=== PATIENT | female | born 1935 | race African-American/Black ===

== ENCOUNTER 2018-01-30 02:05 | Inpatient (IN) | payer OTHER ==
[~2018-01-30] VITALS: Ht 167.6 cm; Wt 72.5 kg
--- NOTE | ~2018-01-30 | HC ---
[facility] [place] [address] CONSULTATION Name: OSIEL BALLESTEROS Room #: 463-P ADM IN M.R.#: [id number] Admission: 01/30/18 Attend Phys: Sofía Noel Discharge: Date of : 39 Report #: [id number] THIS REPORT FOR: //name// CC: FAM unknown Sofía Noel DATE OF SERVICE: 01/31/2018 HISTORY OF PRESENT ILLNESS: This is an 82-year-old female patient who was evaluated by me for dizziness. The patient gives a history that about 2-3 days ago, her speech got altered. She had some symptoms on the right side. She felt dizzy. This dizziness was moderately severe. She was still able to walk. She does have some balance issues. They all started about 2-3 days ago. This started spontaneously without any trauma. REVIEW OF SYSTEMS: Indicate that she usually goes to [facility] for her care. The last time she was there DICTATION ENDS HERE. <ELECTRONICALLY SIGNED> By: Parish Paz MD 01/31/18 1711 0831 1214 Parish Paz MD /nt
--- NOTE | ~2018-01-30 | EKG ---
[address] [employer] [address] ELECTROCARDIOGRAM REPORT Name: OSIEL BALLESTEROS Room #: 236-P ADM IN M.R.#: [id number] Admission: 01/30/18 Attend Phys: Sofía Noel Discharge: Date of : 37 Report #: [id number] THIS REPORT FOR: //name// [facility] Test Date: 2018-02-10 Test Time: 03:28:16 Pat Name: OSIEL BALLESTEROS Department: Room: 236 Gender: F Insecticide Mixer: 3w : 1935 Requested By: Halie Longo Order Number: [id number] MD: Rehan Marcelino Measurements Intervals [place] Rate: 61 P: 12 [place]: 164 QRS: -27 QRSD: 116 T: -55 QT: 415 QTc: 418 Interpretive Statements Sinus rhythm Left ventricular hypertrophy Nonspecific T wave abnormality No previous ECG available for comparison Electronically Signed On 02-10-2018 7:59:00 HORSE STUD WORKER by Rehan Marcelino [email or web address] <ELECTRONICALLY SIGNED> By: Rehan Marcelino MD, [facility] 02/10/18 0759 0328 0328 Rehan Marcelino MD, FACC /EPI
--- NOTE | ~2018-01-30 | EKG ---
[address] [place] [address] ELECTROCARDIOGRAM REPORT Name: OSIEL BALLESTEROS Room #: 354-P ADM IN M.R.#: [id number] Admission: 01/30/18 Attend Phys: Sofía Noel Discharge: Date of : 37 Report #: [id number] THIS REPORT FOR: //name// [facility] Test Date: 2018-02-12 Test Time: 18:44:23 Pat Name: OSIEL BALLESTEROS Department: Room: 354 P Gender: F Kohinoor Operator: ANDREY : 1935 Requested By: Eddi Del Cid Order Number: [id number] MD: Rehan Marcelino Measurements Intervals [place] Rate: 150 P: [place]: QRS: -17 QRSD: 107 T: 176 QT: 293 QTc: 463 Interpretive Statements Atrial fibrillation with rapid V-rate LVH with secondary repolarization abnormality ST depression, probably rate related Compared to ECG 02/10/2018 03:28:16 Atrial fibrillation has replaced sinus rhythm ST and T wave abnormality is more pronounced Electronically Signed On 02-13-2018 8:12:12 PHARMACIST APPRENTICE by Rehan Marcelino [email or web address] <ELECTRONICALLY SIGNED> By: Rehan Marcelino MD, FACC 02/13/18 0812 1844 1844 Rehan Marcelino MD, [facility] /EPI
--- NOTE | ~2018-01-30 | HC ---
[facility] [place] [address] CONSULTATION Name: OSIEL BALLESTEROS Room #: 463-P ADM IN M.R.#: [id number] Admission: 01/30/18 Attend Phys: Sofía Noel Discharge: Date of : 37 Report #: [id number] THIS REPORT FOR: //name// CC: FAM unknown Sofía Noel DATE OF SERVICE: 01/31/2018 HISTORY OF PRESENT ILLNESS: This is an 82-year-old female patient who was evaluated by me for dizziness. This patient was discussed with the nurses looking after this patient. I called Dr. Noel, the attending physician, and talked to him. I took the history from the patient as well as the daughter. Routine consult was requested in this patient because she was having dizziness for 2-3 days. It started spontaneously, without any trauma. It is moderately severe because she is still able to function. She does not know anything which makes it better or worse. Her speech looks altered. She was not that much of air or concerned about it, but that also started about 2-3 days ago and she was able to do things reasonably well before that. REVIEW OF SYSTEMS: Positive for prior breast cancer, for which she is on treatment for a long time. She does not take tamoxifen She was admitted with thrombocytopenia. She is not complaining of any particular headache at the moment. She was able to go to the restroom, with some assistance today. She does have a history of hypertension. She does take Arimidex for her breast cancer. Her 14-point review of system was carried out and this looks like relevant 14-point review of system. She is not complaining of any specific visual complaints. She does have some ear pain. She is not complaining of any chest pain or atrial fibrillation symptoms. Her breathing is stable. She is not having much GI or symptoms. She denies any new musculoskeletal, constitutional, dermatological, hematological, psychiatric, throat or allergic symptom associated with present symptomatology. PAST MEDICAL HISTORY: Negative for stroke. FAMILY HISTORY: Negative for early age stroke. SOCIAL HISTORY: She does not smoke. PHYSICAL EXAMINATION: NEUROLOGIC: Indicate that this patient is alert, responsive. She is oriented. Her speech is slurred. She does have paraphasic error, but she does appear to have at least some aphasia. Cranial nerve examination 2-12 was carried out. Sometime she looks like she may have some deficit on the left temporal field, but not certain. She does appear to be somewhat weaker on the right side as compared to the left side. Her sensation is intact on both sides. Her reflexes are symmetrical. Tone looks unremarkable. I could not look at the patient's [facility] [address] [place] [address] CONSULTATION Name: OSIEL BALLESTEROS Room #: 463-P ADM IN M.R.#: [id number] Admission: 01/30/18 Attend Phys: Sofía Noel Discharge: Date of : 37 Report #: [id number] fundus. GENERAL: She is reasonably well-developed individual. HEENT: She does not have any dysmorphic features of eyes, ears and face. She has no thyroid mass. EXTREMITIES: Pulses are palpable in the upper extremities. VITAL SIGNS: Blood pressure is 134/66, pulse is 77 and temperature is 98.6. CHEST: She does not have any documented atrial fibrillation. She does not have any respiratory difficulty or rhonchi on both sides. LABORATORY DATA: Labs are significant for hemoglobin of only 7.3 and platelet count of 11,000. She does have some kidney dysfunction at a GFR of 48, but that is pretty minor. Calcium is somewhat low. 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 She has no evidence for atrial fibrillation. 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 They have not reported any schistocyte on the CBC, but I am not sure whether they looked for it or not. I did order the LDH. She needs Hematology consult and I talked to Dr. Noel and he is going to arrange that this morning. I will defer to them if they want to continue aspirin or think it needs to be stopped. I will go ahead and do an MRA in this patient to look for any signs of vasculitis or any thrombosis in the intracranial area. She also needs to be monitored for any signs of atrial fibrillation, which can cause cardiac embolization and need an echocardiogram, which is already ordered. However, further workup will depend upon the outcome of the above testing and we will await this workup and decide about further management. More than 50 minutes of time were spent taking care of this patient today and majority of that time was spent counseling the patient as well as coordinating her care. <ELECTRONICALLY SIGNED> By: Parish Paz MD 01/31/18 1711 0850 1246 Parish Paz MD /nt
--- NOTE | ~2018-01-30 | EKG ---
[address] [address] [facility] [place] [address] ELECTROCARDIOGRAM REPORT Name: OSIEL BALLESTEROS Room #: 236-P ADM IN M.R.#: [id number] Admission: 01/30/18 Attend Phys: Sofía Noel Discharge: Date of : 37 Report #: [id number] THIS REPORT FOR: //name// [facility] Test Date: 2018-02-09 Test Time: 19:46:47 Pat Name: OSIEL BALLESTEROS Department: Room: 359 P Gender: F Trade Recruiter: Lucina WELLS : 1935 Requested By: Elyssa Chavez Order Number: [id number] MD: Rehan Marcelino Measurements Intervals [place] Rate: 65 P: 37 FL: 158 QRS: -13 QRSD: 115 T: -71 QT: 407 QTc: 424 Interpretive Statements Sinus rhythm Nonspecific T abnormalities, diffuse leads No previous ECG available for comparison Electronically Signed On 02-10-2018 7:57:22 GLASS GRINDER by Rehan Marcelino [email or web address] <ELECTRONICALLY SIGNED> By: Rehan Marcelino MD, [facility] 02/10/18 0757 1946 45 Rehan Marcelino MD, FACC /EPI
--- NOTE | ~2018-01-30 | HC ---
[facility] [place] [id number] CONSULTATION Name: OSIEL BALLESTEROS Room #: 354-P [facility] IN M.R.#: [id number] Admission: 01/30/18 Attend Phys: Carterdipika Noel Discharge: Date of : 37 Report #: [id number] THIS REPORT FOR: //name// CC: FAM unknown Carterdipika Bert DATE OF SERVICE: 02/14/2018 SUBJECTIVE: The patient is doing well. She received a dose of Rituxan yesterday, did not have any reactions or side effects. This morning, she does not have shortness of breath, headaches. PHYSICAL EXAMINATION: VITAL SIGNS: Blood pressure 147/58, heart rate is 68, temperature 98.0. HEENT: Does not reveal wet purpura. NECK: Supple. HEART: Normal S1, S2. LUNGS: Clear. EXTREMITIES: Lower extremity, no petechiae, no bruising. LABORATORY DATA: White count 16.0, hemoglobin 8.3, platelets 183. ASSESSMENT AND PLAN: 1. 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 Platelets are normal today. 2. Anemia, asymptomatic. Continue to monitor. <ELECTRONICALLY SIGNED> By: Jeremy Villavicencio MD 02/16/18 1326 1309 1524 Jeremy Villavicencio MD /nt
--- NOTE | ~2018-01-30 | EKG ---
[address] [place] [address] ELECTROCARDIOGRAM REPORT Name: OSIEL BALLESTEROS Room #: 354-P ADM IN M.R.#: [id number] Admission: 01/30/18 Attend Phys: Sofía Noel Discharge: Date of : 37 Report #: [id number] THIS REPORT FOR: //name// [facility] Test Date: 2018-02-16 Test Time: 15:33:49 Pat Name: OSIEL BALLESTEROS Department: Room: 354 P Gender: F Survey Data Technician: Lucina WELLS : 1935 Requested By: Gregg Armstrong Order Number: [id number] MD: Rehan Marcelino Measurements Intervals [place] Rate: 142 P: 228 [place]: 90 QRS: -11 QRSD: 109 T: 180 QT: 301 QTc: 463 Interpretive Statements Supraventricular tachycardia Ventricular premature complex LVH with secondary repolarization abnormality ST depression, probably rate related Compared to ECG 02/12/2018 18:44:23 Ventricular premature complex(es) now present Electronically Signed On 02-17-2018 8:45:59 PRINTING PRESS OPERATOR by Rehan Marcelino [email or web address] <ELECTRONICALLY SIGNED> By: Rehan Marcelino MD, [facility] 02/17/18 0845 1533 1533 Rehan Marcelino MD, [facility] /EPI
--- NOTE | ~2018-01-30 | 2DMMODE ---
[address] [place] [address] 2 D/M-MODE ECHOCARDIOGRAM Name: OSIEL BALLESTEROS Room #: 245-P ADM IN M.R.#: [id number] Admission: 01/30/18 Attend Phys: Sofía Whitaker Discharge: Date of : 39 Date of Service: 02/02/18 1147 Report #: [id number] THIS REPORT FOR: //name// APPROVED REPORT Study performed: 02/02/2018 09:45:04 EXAM: Comprehensive 2D, Doppler, and color-flow Echocardiogram Patient Location: ICU Room #: [facility] Status: routine BSA: 1.83 HR: 70 bpm BP: 162/71 mmHg Rhythm: NSR Other Information Study Quality: Fair Indications CVA/TIA Dizziness 2D Dimensions RVDd: 22.71 mm IVSd: 11.13 (7-11mm) LVOT Diam: 20.62 (18-24mm) LVDd: 33.19 mm PWd: 10.75 (7-11mm) LVDs: 20.59 (25-40mm) Aortic Root: 31.29 mm IVC: 18.00 mm Volumes Left Atrial Volume (Systole) Single Plane 4CH: 66.59 mL Single Plane 2CH: 51.31 mL LA ESV Index: 36.00 mL/m2 Aortic Valve AoV Peak Chiki.: 1.73 m/s AO Peak Gr.: 12.64 mmHg LVOT Max P.77 mmHg LVOT Max V: 1.20 m/s JAROCHO Vmax: 2.31 cm2 AI Vmax: 4.25 m/s AI Grundy: 2.22 m/s2 AI PHT: 555.11 ms [address] [address] 2 D/M-MODE ECHOCARDIOGRAM Name: JOSH BALLESTEROSTIE Room #: 245-P [facility] IN ..#: [id number] Admission: 01/30/18 Attend Phys: Sofía Whitaker Discharge: Date of : 39 Date of Service: 02/02/18 1147 Report #: [id number] Mitral Valve E/A Ratio: 0.7 MV Decel. Time: 247.65 ms MV E Max Chiki.: 0.73 m/s MV A Chiki.: 1.00 m/s MV PHT: 71.82 ms IVRT: 138.41 ms Pulmonary Valve PV Peak Chiki.: 1.08 m/s PV Peak Gr.: 4.72 mmHg Pulmonary Vein P Vein S: 0.52 m/s P Vein D: 0.34 m/s P Vein S/D Ratio: 1.53 Tricuspid Valve TR Peak Chiki.: 2.44 m/s RAP Estimate: 5.00 mmHg TR Peak Gr.: 23.77 mmHg PA Pressure: 29.00 mmHg Left Ventricle The left ventricle is normal size. There is normal left ventricular wall thickness. The left ventricular systolic function is normal. The left ventricular ejection fraction is within the normal range. LVEF is 55-60%. Mild diastolic dysfunction is present (impaired relaxation pattern). Right Ventricle The right ventricle is normal size. The right ventricular systolic function is normal. Atria The left atrium size is normal. Injection of bubbles documented no interatrial shunt. The right atrium size is normal. Aortic Valve The aortic valve is normal in structure. Mild to moderate aortic regurgitation. There is no aortic valvular stenosis. Mitral Valve The mitral valve is normal in structure. Trace mitral regurgitation. No evidence of mitral valve stenosis. Tricuspid Valve The tricuspid valve is normal in structure. Mild tricuspid [address] [place] [address] 2 D/M-MODE ECHOCARDIOGRAM Name: OSIEL BALLESTEROS Room #: 245-P ADM IN M.R.#: [id number] Admission: 01/30/18 Attend Phys: Sofía Whitaker Discharge: Date of : 39 Date of Service: 02/02/18 1147 Report #: [id number] regurgitation. Estimated PAP of 29 mmHg. Pulmonic Valve Pulmonic valve is not well visualized. There is no pulmonic valvular regurgitation. Great Vessels The aortic root is normal in size. IVC is normal in size and collapses >50% with inspiration. <Conclusion> The left ventricle is normal size. There is normal left ventricular wall thickness. The left ventricular systolic function is normal. Mild diastolic dysfunction is present (impaired relaxation pattern). The right ventricle is normal size. The left atrium size is normal. Injection of bubbles documented no interatrial shunt. Mild to moderate aortic regurgitation. Trace mitral regurgitation. Mild tricuspid regurgitation. Estimated PAP of 29 mmHg. <ELECTRONICALLY SIGNED> By: Josh Dumont MD 02/02/18 1147 1147 1147 Josh Dumont MD /INF
[~2018-01-30 02:05] MED LIST: ASPIR 8181 MG PO; AUGMENTIN 875875 MG PO; CARDURA4 MG PO; COREG12.5 MG; LIPITOR 20 MG T20 M1 PO; NEURONTIN250 MG/5 M PO; NORVASC10 MG PO
[2018-01-30 02:09] VITALS: BP 114/45
[2018-01-30] MEDS ORDERED: ARIMIDEX1 MG PO (02:45)
[2018-01-30 04:14] LABS: BASOPHILS 0.7 % (0.0-2.0); HEMOGLOBIN 8.2 gm/dL (12.0-15.0); WBC 6.5 thou/uL (4.0-11.0)
[2018-01-30 04:16] LABS: ABSOLUTE NEUTROPHILS 4.3 thou/uL (1.4-8.2); EOSINOPHILS 1.7 % (0.0-3.0); HEMATOCRIT 22.6 % (37.0-47.0); MCH 30.5 pg (26.0-34.0); MCHC 36.3 g/dL (28.0-37.0); MONOCYTES 10.9 % (1.0-8.0); POLYS 65.7 % (36.0-66.0); RDW 14.7 % (10.5-14.5)
[2018-01-30 04:17] LABS: CALCIUM 8.6 mg/dL (8.5-10.1); CREATININE 1.3 mg/dL (0.6-1.0)
[2018-01-30 04:18] LABS: PLATELET COUNT 7 thou/uL (150-400)
[2018-01-30 04:19] LABS: POTASSIUM 2.9 mmol/L (3.5-5.1)
[2018-01-30 04:48] LABS: PLATELET ESTIMATE MARKEDLY DECREASED
[2018-01-30 06:59] VITALS: BP 132/60
[2018-01-30 08:17] VITALS: BP 130/66
[2018-01-30 16:17] VITALS: BP 157/69
[2018-01-30 16:19] LABS: CHOLESTEROL 142 mg/dL (<200); HDL CHOLESTEROL 51 mg/dL (>40); LDL CHOLESTEROL 81 mg/dL (<100); TC:HDL 2.8 Ratio (Not establshd); TRIGLYCERIDE 54 mg/dL (<150); VLDL 11 mg/dL (<40)
[2018-01-30 16:21] LABS: SERUM ASSESSMENT Clear
[2018-01-30 20:06] VITALS: BP 123/58
[2018-01-31 04:23] VITALS: BP 137/62
[2018-01-31 05:17] LABS: HEMOGLOBIN 7.3 gm/dL (12.0-15.0); RDW 15.2 % (10.5-14.5)
[2018-01-31 05:21] LABS: HEMATOCRIT 20.5 % (37.0-47.0); MCH 30.3 pg (26.0-34.0); MCHC 35.4 g/dL (28.0-37.0); MCV 85.6 fL (80.0-100.0); RBC 2.4 mil/uL (4.20-5.00); WBC 6.3 thou/uL (4.0-11.0)
[2018-01-31 05:34] LABS: CREATININE 1.3 mg/dL (0.6-1.0); POTASSIUM 3.6 mmol/L (3.5-5.1)
[2018-01-31 07:38] VITALS: BP 134/66
[2018-01-31 15:00] VITALS: BP 120/65
[2018-01-31 16:11] LABS: ABSOLUTE RETIC COUNT 0.1155 10^6/uL; OBSERVED RETIC COUNT 4.41 % (0.6-2.6)
[2018-01-31 16:20] LABS: APTT 28.6 Seconds (24.5-32.8); FIBRINOGEN 432.1 mg/dL (210-360); PROTIME 10.1 Seconds (9.3-11.4)
[2018-01-31 20:29] VITALS: BP 135/64
[2018-02-01] VITALS (25 sets, daily range): BP systolic 107–162; BP diastolic 51–82
[2018-02-01 07:42] LABS: HEMOGLOBIN 6.8 gm/dL (12.0-15.0); WBC 6.6 thou/uL (4.0-11.0)
[2018-02-01 07:45] LABS: ABSOLUTE NEUTROPHILS 3.7 thou/uL (1.4-8.2); BASOPHILS 0.9 % (0.0-2.0); EOSINOPHILS 3.8 % (0.0-3.0); LYMPHOCYTES 26.8 % (24.0-44.0); MCH 30.3 pg (26.0-34.0); MCHC 35.2 g/dL (28.0-37.0); MCV 85.9 fL (80.0-100.0); POLYS 56.5 % (36.0-66.0); RBC 2.25 mil/uL (4.20-5.00); RDW 15.4 % (10.5-14.5)
[2018-02-01 07:55] LABS: HEMATOCRIT 19.4 % (37.0-47.0); PLATELET COUNT 14 thou/uL (150-400)
[2018-02-01 08:04] LABS: ALBUMIN 2.4 g/dL (3.4-5.0); CALCIUM 8.5 mg/dL (8.5-10.1); CREATININE 1.1 mg/dL (0.6-1.0); POTASSIUM 3.3 mmol/L (3.5-5.1); TOTAL BILIRUBIN 1.4 mg/dL (<0.1-1.0); TOTAL PROTEIN 6.6 g/dL (6.4-8.2)
[2018-02-02] VITALS (15 sets, daily range): BP systolic 125–174; BP diastolic 59–102
[2018-02-02 03:49] LABS: HEMOGLOBIN 7.7 gm/dL (12.0-15.0)
[2018-02-02 03:50] LABS: HEMATOCRIT 22.5 % (37.0-47.0); MCH 29.1 pg (26.0-34.0); MCHC 34.2 g/dL (28.0-37.0); MCV 85.2 fL (80.0-100.0); RBC 2.64 mil/uL (4.20-5.00); RDW 16.2 % (10.5-14.5); WBC 8.6 thou/uL (4.0-11.0)
[2018-02-02 03:56] LABS: ALBUMIN 2.6 g/dL (3.4-5.0); CALCIUM 7.9 mg/dL (8.5-10.1); PHOSPHORUS 3.7 mg/dL (2.5-4.9); POTASSIUM 3.2 mmol/L (3.5-5.1)
[2018-02-02 04:25] LABS: PLATELET COUNT 11 thou/uL (150-400)
[2018-02-02 04:32] LABS: ABSOLUTE NEUTROPHILS 5.8 thou/uL (1.4-8.2)
[2018-02-02 04:33] LABS: ANISOCYTOSIS 1+; LARGE PLATELETS OCCASIONAL; PLATELET ESTIMATE MARKEDLY DECREASED; POLYCHROMASIA 1+
[2018-02-02 04:34] LABS: SCHISTOCYTES 1+
[2018-02-03] VITALS (12 sets, daily range): BP systolic 102–136; BP diastolic 46–82
[2018-02-03 04:09] LABS: ABSOLUTE NEUTROPHILS 11.5 thou/uL (1.4-8.2); BASOPHILS 0.3 % (0.0-2.0); EOSINOPHILS 0.1 % (0.0-3.0); HEMATOCRIT 23.9 % (37.0-47.0); HEMOGLOBIN 8.4 gm/dL (12.0-15.0); LYMPHOCYTES 10.5 % (24.0-44.0); MCH 29.9 pg (26.0-34.0); MCV 85.4 fL (80.0-100.0); MONOCYTES 4.6 % (1.0-8.0); POLYS 84.5 % (36.0-66.0); RDW 16.6 % (10.5-14.5); WBC 13.7 thou/uL (4.0-11.0)
[2018-02-03 04:21] LABS: ALBUMIN 2.9 g/dL (3.4-5.0); CALCIUM 8.9 mg/dL (8.5-10.1); CREATININE 1.1 mg/dL (0.6-1.0); POTASSIUM 3.5 mmol/L (3.5-5.1); TOTAL BILIRUBIN 0.6 mg/dL (<0.1-1.0); TOTAL PROTEIN 6.6 g/dL (6.4-8.2)
[2018-02-03 06:06] LABS: PLATELET COUNT 74 thou/uL (150-400)
[2018-02-04] VITALS (31 sets, daily range): BP systolic 96–142; BP diastolic 46–98
[2018-02-04 04:44] LABS: ABSOLUTE NEUTROPHILS 13.1 thou/uL (1.4-8.2); BASOPHILS 0.2 % (0.0-2.0); EOSINOPHILS 0.1 % (0.0-3.0); HEMATOCRIT 24.3 % (37.0-47.0); HEMOGLOBIN 8.4 gm/dL (12.0-15.0); LYMPHOCYTES 9.2 % (24.0-44.0); MCH 29.9 pg (26.0-34.0); MCHC 34.7 g/dL (28.0-37.0); MCV 86.3 fL (80.0-100.0); MONOCYTES 7.7 % (1.0-8.0); POLYS 82.8 % (36.0-66.0); RBC 2.81 mil/uL (4.20-5.00); RDW 17.2 % (10.5-14.5); WBC 15.8 thou/uL (4.0-11.0)
[2018-02-04 04:55] LABS: PLATELET COUNT 199 thou/uL (150-400)
[2018-02-04 05:28] LABS: ALBUMIN 3.1 g/dL (3.4-5.0); CALCIUM 8.7 mg/dL (8.5-10.1); CREATININE 1.1 mg/dL (0.6-1.0); PHOSPHORUS 3.4 mg/dL (2.5-4.9); TOTAL BILIRUBIN 0.4 mg/dL (<0.1-1.0); TOTAL PROTEIN 6.4 g/dL (6.4-8.2)
[2018-02-05] VITALS (15 sets, daily range): BP systolic 119–157; BP diastolic 52–66
[2018-02-05 04:50] LABS: ABSOLUTE NEUTROPHILS 9.8 thou/uL (1.4-8.2); BASOPHILS 0.1 % (0.0-2.0); HEMATOCRIT 23.7 % (37.0-47.0); LYMPHOCYTES 7.8 % (24.0-44.0); MCH 29.3 pg (26.0-34.0); MCHC 33.5 g/dL (28.0-37.0); MCV 87.3 fL (80.0-100.0); MONOCYTES 7.2 % (1.0-8.0); POLYS 84.9 % (36.0-66.0); RBC 2.72 mil/uL (4.20-5.00); RDW 17.2 % (10.5-14.5); WBC 11.5 thou/uL (4.0-11.0)
[2018-02-05 04:55] LABS: PLATELET COUNT 287 thou/uL (150-400)
[2018-02-05 05:04] LABS: ALBUMIN 2.9 g/dL (3.4-5.0); CALCIUM 8.3 mg/dL (8.5-10.1); POTASSIUM 3.4 mmol/L (3.5-5.1); TOTAL BILIRUBIN 0.3 mg/dL (<0.1-1.0); TOTAL PROTEIN 5.9 g/dL (6.4-8.2)
[2018-02-05 13:24] LABS: FOLIC ACID 15.4 ng/mL (8.6-58.9)
[2018-02-06] VITALS: BP 128/49
[2018-02-06 04:01] VITALS: BP 116/47
[2018-02-06 06:07] LABS: ABSOLUTE NEUTROPHILS 10.3 thou/uL (1.4-8.2); BASOPHILS 0.5 % (0.0-2.0); HEMATOCRIT 25.3 % (37.0-47.0); HEMOGLOBIN 8.8 gm/dL (12.0-15.0); LYMPHOCYTES 11.6 % (24.0-44.0); MCH 30.5 pg (26.0-34.0); MCHC 34.6 g/dL (28.0-37.0); MCV 88.2 fL (80.0-100.0); MONOCYTES 8.8 % (1.0-8.0); POLYS 79.1 % (36.0-66.0); RBC 2.87 mil/uL (4.20-5.00); RDW 18.4 % (10.5-14.5)
[2018-02-06 06:08] LABS: PLATELET COUNT 378 thou/uL (150-400)
[2018-02-06 06:22] LABS: ALBUMIN 2.8 g/dL (3.4-5.0); CALCIUM 8.8 mg/dL (8.5-10.1); CREATININE 0.9 mg/dL (0.6-1.0); POTASSIUM 4.2 mmol/L (3.5-5.1); TOTAL BILIRUBIN 0.3 mg/dL (<0.1-1.0)
[2018-02-06 08:00] VITALS: BP 148/62
[2018-02-06 12:00] VITALS: BP 152/56
[2018-02-06 16:29] VITALS: BP 148/70
[2018-02-06 19:20] VITALS: BP 130/58
[2018-02-07 03:25] VITALS: BP 137/67
[2018-02-07 06:54] LABS: ABSOLUTE NEUTROPHILS 9.7 thou/uL (1.4-8.2); BASOPHILS 0.1 % (0.0-2.0); EOSINOPHILS 0.5 % (0.0-3.0); HEMATOCRIT 24.4 % (37.0-47.0); HEMOGLOBIN 8.3 gm/dL (12.0-15.0); LYMPHOCYTES 16.5 % (24.0-44.0); MCH 30.3 pg (26.0-34.0); MCV 89.2 fL (80.0-100.0); MONOCYTES 9.7 % (1.0-8.0); PLATELET COUNT 451 thou/uL (150-400); POLYS 73.2 % (36.0-66.0); RBC 2.74 mil/uL (4.20-5.00); RDW 17.9 % (10.5-14.5); WBC 13.2 thou/uL (4.0-11.0)
[2018-02-07 07:08] LABS: ALBUMIN 2.7 g/dL (3.4-5.0); CALCIUM 8.6 mg/dL (8.5-10.1); POTASSIUM 3.4 mmol/L (3.5-5.1); TOTAL BILIRUBIN 0.3 mg/dL (<0.1-1.0); TOTAL PROTEIN 5.8 g/dL (6.4-8.2)
[2018-02-07 07:31] VITALS: BP 161/72
[2018-02-07 11:17] VITALS: BP 109/45
[2018-02-07 15:52] VITALS: BP 126/62
[2018-02-07 19:18] VITALS: BP 136/61
[2018-02-08 03:23] VITALS: BP 176/68
[2018-02-08 05:15] LABS: BASOPHILS 0.1 % (0.0-2.0); EOSINOPHILS 0.9 % (0.0-3.0); HEMATOCRIT 24.4 % (37.0-47.0); HEMOGLOBIN 8.4 gm/dL (12.0-15.0); LYMPHOCYTES 11.8 % (24.0-44.0); MCH 30.7 pg (26.0-34.0); MCHC 34.4 g/dL (28.0-37.0); MCV 89.2 fL (80.0-100.0); MONOCYTES 9.4 % (1.0-8.0); PLATELET COUNT 470 thou/uL (150-400); POLYS 77.8 % (36.0-66.0); RBC 2.73 mil/uL (4.20-5.00); RDW 18.2 % (10.5-14.5); WBC 12.8 thou/uL (4.0-11.0)
[2018-02-08 05:32] LABS: ALBUMIN 2.7 g/dL (3.4-5.0); CALCIUM 8.5 mg/dL (8.5-10.1); CREATININE 1.1 mg/dL (0.6-1.0); POTASSIUM 3.4 mmol/L (3.5-5.1); TOTAL BILIRUBIN 0.3 mg/dL (<0.1-1.0); TOTAL PROTEIN 5.7 g/dL (6.4-8.2)
[2018-02-08 07:32] VITALS: BP 147/69
[2018-02-08 15:28] VITALS: BP 136/69
[2018-02-08 19:50] VITALS: BP 134/65
[2018-02-09 05:00] VITALS: BP 139/74
[2018-02-09 05:28] LABS: ABSOLUTE NEUTROPHILS 9.5 thou/uL (1.4-8.2); BASOPHILS 0.1 % (0.0-2.0); EOSINOPHILS 0.7 % (0.0-3.0); HEMATOCRIT 25.1 % (37.0-47.0); HEMOGLOBIN 8.2 gm/dL (12.0-15.0); LYMPHOCYTES 12.8 % (24.0-44.0); MCH 29.5 pg (26.0-34.0); MCHC 32.7 g/dL (28.0-37.0); MCV 90.1 fL (80.0-100.0); MONOCYTES 9.2 % (1.0-8.0); PLATELET COUNT 489 thou/uL (150-400); POLYS 77.2 % (36.0-66.0); RBC 2.78 mil/uL (4.20-5.00); RDW 19.6 % (10.5-14.5); WBC 12.3 thou/uL (4.0-11.0)
[2018-02-09 05:50] LABS: ALBUMIN 2.6 g/dL (3.4-5.0); CALCIUM 8.5 mg/dL (8.5-10.1); POTASSIUM 3.6 mmol/L (3.5-5.1); TOTAL BILIRUBIN 0.3 mg/dL (<0.1-1.0); TOTAL PROTEIN 5.6 g/dL (6.4-8.2)
[2018-02-09 07:34] VITALS: BP 158/74
[2018-02-09 11:57] VITALS: BP 149/65
[2018-02-09 15:46] VITALS: BP 138/61
[2018-02-09 19:10] VITALS: BP 155/76
[2018-02-10] VITALS (47 sets, daily range): BP systolic 102–181; BP diastolic 40–105
[2018-02-10 03:40] LABS: ABSOLUTE NEUTROPHILS 14.2 thou/uL (1.4-8.2); BASOPHILS 0.1 % (0.0-2.0); EOSINOPHILS 0.2 % (0.0-3.0); HEMATOCRIT 24.9 % (37.0-47.0); HEMOGLOBIN 8.2 gm/dL (12.0-15.0); LYMPHOCYTES 5.7 % (24.0-44.0); MCH 29.9 pg (26.0-34.0); MCHC 33.1 g/dL (28.0-37.0); MCV 90.2 fL (80.0-100.0); MONOCYTES 8.5 % (1.0-8.0); POLYS 85.5 % (36.0-66.0); RBC 2.76 mil/uL (4.20-5.00); RDW 19.6 % (10.5-14.5); WBC 16.6 thou/uL (4.0-11.0)
[2018-02-10 03:46] LABS: PLATELET COUNT 169 thou/uL (150-400)
[2018-02-10 04:02] LABS: ALBUMIN 2.6 g/dL (3.4-5.0); CALCIUM 8.3 mg/dL (8.5-10.1); CREATININE 0.9 mg/dL (0.6-1.0); POTASSIUM 3.7 mmol/L (3.5-5.1); TOTAL BILIRUBIN 6.4 mg/dL (<0.1-1.0)
[2018-02-10 04:23] LABS: TOTAL PROTEIN 5.5 g/dL (6.4-8.2)
[2018-02-10 07:55] LABS: APTT 22.6 Seconds (24.5-32.8); INR 1.1; PROTIME 11.4 Seconds (9.3-11.4)
[2018-02-10 08:33] LABS: BURR CELLS OCCASIONAL; SCHISTOCYTES 1+
[2018-02-10 08:36] LABS: LARGE PLATELETS OCCASIONAL
[2018-02-10 08:58] LABS: ABSOLUTE NEUTROPHILS 9.5 thou/uL (1.4-8.2); BASOPHILS 0.2 % (0.0-2.0); EOSINOPHILS 1.2 % (0.0-3.0); HEMATOCRIT 25.1 % (37.0-47.0); HEMOGLOBIN 8.6 gm/dL (12.0-15.0); LYMPHOCYTES 11.1 % (24.0-44.0); MCH 30.5 pg (26.0-34.0); MCHC 34.2 g/dL (28.0-37.0); MCV 89.4 fL (80.0-100.0); MONOCYTES 11.3 % (1.0-8.0); PLATELET COUNT 129 thou/uL (150-400); POLYS 76.2 % (36.0-66.0); RBC 2.81 mil/uL (4.20-5.00); RDW 19.4 % (10.5-14.5); WBC 12.4 thou/uL (4.0-11.0)
[2018-02-10 09:16] LABS: ALBUMIN 2.7 g/dL (3.4-5.0); CALCIUM 9.3 mg/dL (8.5-10.1); CREATININE 1.1 mg/dL (0.6-1.0); POTASSIUM 3.8 mmol/L (3.5-5.1); TOTAL BILIRUBIN 10.1 mg/dL (<0.1-1.0)
[2018-02-10 09:21] LABS: SCHISTOCYTES 1+
[2018-02-10 09:22] LABS: ANISOCYTOSIS 2+; BURR CELLS 1+; POIKILOCYTOSIS 1+; POLYCHROMASIA SLIGHT
[2018-02-10 10:02] LABS: TOTAL PROTEIN 6.1 g/dL (6.4-8.2)
[2018-02-10 12:51] LABS: URINE BILIRUBIN 1+ (Negative); URINE BLOOD NEGATIVE (Negative); URINE CLARITY CLEAR; URINE COLOR YELLOW; URINE GLUCOSE-RANDOM* NEGATIVE (Negative); URINE KETONES NEGATIVE (Negative); URINE LEUKOCYTES NEGATIVE (Negative); URINE NITRITE NEGATIVE (Negative); URINE PROTEIN (DIPSTICK) NEGATIVE (Negative); URINE UROBILINOGEN 0.2 E.U./dl (0.2-1.0)
[2018-02-10 12:54] LABS: ICTOTEST (BILI CONFIRMATORY) Positive (Negative)
[2018-02-10 12:55] LABS: URINE CREATININE-RANDOM* 26.5 mg/dL; URINE PROTEIN-RANDOM* 14.2 mg/dL (<11.9)
[2018-02-10 17:25] LABS: HEMATOCRIT 38.7 % (37.0-47.0); MCH 29.2 pg (26.0-34.0); MCHC 33.5 g/dL (28.0-37.0); MCV 87.4 fL (80.0-100.0); RBC 4.43 mil/uL (4.20-5.00); RDW 14.2 % (10.5-14.5); WBC 11.9 thou/uL (4.0-11.0)
[2018-02-10 17:29] LABS: PLATELET COUNT 238 thou/uL (150-400)
[2018-02-10 18:13] LABS: ABSOLUTE NEUTROPHILS 9.5 thou/uL (1.4-8.2); ANISOCYTOSIS 1+; POLYCHROMASIA OCCASIONAL
[2018-02-11] VITALS (29 sets, daily range): BP systolic 111–162; BP diastolic 44–85
[2018-02-11 05:41] LABS: BASOPHILS 0.1 % (0.0-2.0); EOSINOPHILS 0.1 % (0.0-3.0); LYMPHOCYTES 5.8 % (24.0-44.0); MCH 31.3 pg (26.0-34.0); MCHC 34.6 g/dL (28.0-37.0); MCV 90.3 fL (80.0-100.0); MONOCYTES 5.4 % (1.0-8.0); POLYS 88.6 % (36.0-66.0); RBC 2.88 mil/uL (4.20-5.00); RDW 20.3 % (10.5-14.5); WBC 11.2 thou/uL (4.0-11.0)
[2018-02-11 05:53] LABS: PLATELET COUNT 106 thou/uL (150-400)
[2018-02-11 05:57] LABS: ALBUMIN 2.8 g/dL (3.4-5.0); CALCIUM 8.7 mg/dL (8.5-10.1); POTASSIUM 3.9 mmol/L (3.5-5.1); TOTAL BILIRUBIN 6.7 mg/dL (<0.1-1.0); TOTAL PROTEIN 5.9 g/dL (6.4-8.2)
[2018-02-11 06:02] LABS: CREATININE 1.1 mg/dL (0.6-1.0)
[2018-02-11 12:07] LABS: COMPLEMENT-C3 98 mg/dL (82-167); COMPLEMENT-C4 11 mg/dL (14-44); IgA 188 mg/dL (64-422); IgG 909 mg/dL (700-1600); IgM 60 mg/dL (26-217)
[2018-02-11 18:06] LABS: ABSOLUTE NEUTROPHILS 14.3 thou/uL (1.4-8.2); BASOPHILS 0.1 % (0.0-2.0); HEMATOCRIT 25.7 % (37.0-47.0); HEMOGLOBIN 8.8 gm/dL (12.0-15.0); LYMPHOCYTES 3.9 % (24.0-44.0); MCH 30.7 pg (26.0-34.0); MCHC 34.3 g/dL (28.0-37.0); MCV 89.5 fL (80.0-100.0); MONOCYTES 5.5 % (1.0-8.0); PLATELET COUNT 113 thou/uL (150-400); POLYS 90.5 % (36.0-66.0); RBC 2.87 mil/uL (4.20-5.00); RDW 20.4 % (10.5-14.5); WBC 15.8 thou/uL (4.0-11.0)
[2018-02-12] VITALS (7 sets, daily range): BP systolic 113–137; BP diastolic 60–89
[2018-02-12 07:29] LABS: ABSOLUTE NEUTROPHILS 10.5 thou/uL (1.4-8.2); BASOPHILS 0.2 % (0.0-2.0); HEMATOCRIT 25.6 % (37.0-47.0); HEMOGLOBIN 8.8 gm/dL (12.0-15.0); LYMPHOCYTES 5.5 % (24.0-44.0); MCH 31.1 pg (26.0-34.0); MCHC 34.6 g/dL (28.0-37.0); MCV 89.9 fL (80.0-100.0); MONOCYTES 6.4 % (1.0-8.0); PLATELET COUNT 139 thou/uL (150-400); POLYS 87.9 % (36.0-66.0); RBC 2.84 mil/uL (4.20-5.00); WBC 11.9 thou/uL (4.0-11.0)
[2018-02-12 07:45] LABS: ALBUMIN 3.1 g/dL (3.4-5.0); CALCIUM 8.7 mg/dL (8.5-10.1); CREATININE 1.2 mg/dL (0.6-1.0); POTASSIUM 3.8 mmol/L (3.5-5.1); TOTAL BILIRUBIN 2.2 mg/dL (<0.1-1.0); TOTAL PROTEIN 5.9 g/dL (6.4-8.2)
[2018-02-12 08:05] LABS: ANISOCYTOSIS 1+
[2018-02-12 12:06] LABS: KAPPA FREE LIGHT CHAINS 20.3 mg/L (3.3-19.4); KAPPA/LAMBDA RATIO 1.05 (0.26-1.65); LAMBDA FREE LIGHT CHAINS 19.4 mg/L (5.7-26.3)
[2018-02-12 17:06] LABS: ABSOLUTE NEUTROPHILS 11.4 thou/uL (1.4-8.2); HEMATOCRIT 26.2 % (37.0-47.0); HEMOGLOBIN 8.9 gm/dL (12.0-15.0); LYMPHOCYTES 4.7 % (24.0-44.0); MCV 91.1 fL (80.0-100.0); MONOCYTES 8.5 % (1.0-8.0); PLATELET COUNT 148 thou/uL (150-400); POLYS 86.8 % (36.0-66.0); RBC 2.88 mil/uL (4.20-5.00); RDW 19.6 % (10.5-14.5); WBC 13.1 thou/uL (4.0-11.0)
[2018-02-13] VITALS (12 sets, daily range): BP systolic 126–150; BP diastolic 55–72
[2018-02-13 04:04] LABS: HEMATOCRIT 24.2 % (37.0-47.0); HEMOGLOBIN 8.1 gm/dL (12.0-15.0); MCH 30.7 pg (26.0-34.0); MCHC 33.4 g/dL (28.0-37.0); MCV 91.8 fL (80.0-100.0); RBC 2.63 mil/uL (4.20-5.00); RDW 19.6 % (10.5-14.5); WBC 13.1 thou/uL (4.0-11.0)
[2018-02-13 04:25] LABS: ALBUMIN 2.7 g/dL (3.4-5.0); CALCIUM 8.4 mg/dL (8.5-10.1); CREATININE 1.1 mg/dL (0.6-1.0); POTASSIUM 3.3 mmol/L (3.5-5.1); TOTAL BILIRUBIN 0.7 mg/dL (<0.1-1.0); TOTAL PROTEIN 5.4 g/dL (6.4-8.2)
[2018-02-13 11:11] LABS: GLOMERULR BASEM MEMBRN AB 4 units (0-20)
[2018-02-13 14:09] LABS: ANA INTERPRETATION Negative (Negative)
[2018-02-13 16:11] LABS: GLOBULIN TOTAL 2.4 g/dL (2.2-3.9); M-SPIKE Not Observed g/dL (Not Observed)
[2018-02-13 17:20] LABS: ABSOLUTE NEUTROPHILS 14.1 thou/uL (1.4-8.2); BASOPHILS 0.1 % (0.0-2.0); HEMATOCRIT 23.9 % (37.0-47.0); HEMOGLOBIN 8.1 gm/dL (12.0-15.0); LYMPHOCYTES 4.3 % (24.0-44.0); MCH 31.2 pg (26.0-34.0); MCHC 33.9 g/dL (28.0-37.0); MONOCYTES 6.8 % (1.0-8.0); PLATELET COUNT 154 thou/uL (150-400); POLYS 88.8 % (36.0-66.0); WBC 15.9 thou/uL (4.0-11.0)
[2018-02-14 04:32] VITALS: BP 152/68
[2018-02-14 06:13] LABS: ALBUMIN 2.7 g/dL (3.4-5.0); CALCIUM 8.4 mg/dL (8.5-10.1); POTASSIUM 3.6 mmol/L (3.5-5.1); TOTAL BILIRUBIN 0.5 mg/dL (<0.1-1.0); TOTAL PROTEIN 5.4 g/dL (6.4-8.2)
[2018-02-14 08:22] VITALS: BP 165/77
[2018-02-14 10:42] LABS: ABSOLUTE NEUTROPHILS 14.4 thou/uL (1.4-8.2); BASOPHILS 0.1 % (0.0-2.0); HEMATOCRIT 24.5 % (37.0-47.0); HEMOGLOBIN 8.3 gm/dL (12.0-15.0); MCH 31.5 pg (26.0-34.0); MCHC 33.9 g/dL (28.0-37.0); MCV 92.7 fL (80.0-100.0); MONOCYTES 5.8 % (1.0-8.0); PLATELET COUNT 183 thou/uL (150-400); POLYS 90.1 % (36.0-66.0); RBC 2.64 mil/uL (4.20-5.00); RDW 20.8 % (10.5-14.5)
[2018-02-14 11:35] VITALS: BP 147/58
[2018-02-14 13:27] LABS: ANISOCYTOSIS 1+; POIKILOCYTOSIS SLIGHT; POLYCHROMASIA SLIGHT
[2018-02-14 16:49] VITALS: BP 164/74
[2018-02-14 17:25] LABS: BASOPHILS 0.1 % (0.0-2.0); HEMATOCRIT 26.2 % (37.0-47.0); HEMOGLOBIN 8.8 gm/dL (12.0-15.0); LYMPHOCYTES 5.4 % (24.0-44.0); MCH 31.3 pg (26.0-34.0); MCHC 33.7 g/dL (28.0-37.0); MONOCYTES 5.3 % (1.0-8.0); PLATELET COUNT 218 thou/uL (150-400); POLYS 89.2 % (36.0-66.0); RBC 2.82 mil/uL (4.20-5.00); RDW 20.1 % (10.5-14.5); WBC 16.8 thou/uL (4.0-11.0)
[2018-02-14 19:59] VITALS: BP 143/61
[2018-02-14 19:59] LABS: ANISOCYTOSIS 2+; POLYCHROMASIA SLIGHT; SCHISTOCYTES FEW
[2018-02-15 04:25] VITALS: BP 131/56
[2018-02-15 06:43] LABS: ABSOLUTE NEUTROPHILS 11.5 thou/uL (1.4-8.2); BASOPHILS 0.1 % (0.0-2.0); HEMATOCRIT 23.3 % (37.0-47.0); LYMPHOCYTES 6.7 % (24.0-44.0); MCH 32.3 pg (26.0-34.0); MCHC 34.4 g/dL (28.0-37.0); MCV 93.8 fL (80.0-100.0); PLATELET COUNT 195 thou/uL (150-400); POLYS 87.2 % (36.0-66.0); RBC 2.49 mil/uL (4.20-5.00); RDW 20.5 % (10.5-14.5); WBC 13.2 thou/uL (4.0-11.0)
[2018-02-15 06:51] LABS: ALBUMIN 2.6 g/dL (3.4-5.0); CALCIUM 8.6 mg/dL (8.5-10.1); CREATININE 0.9 mg/dL (0.6-1.0); POTASSIUM 3.6 mmol/L (3.5-5.1); TOTAL BILIRUBIN 0.5 mg/dL (<0.1-1.0); TOTAL PROTEIN 5.5 g/dL (6.4-8.2)
[2018-02-15 07:51] VITALS: BP 157/66
[2018-02-15 09:12] LABS: ANISOCYTOSIS 1+; POIKILOCYTOSIS SLIGHT; SCHISTOCYTES OCCASIONAL
[2018-02-15 11:39] VITALS: BP 143/55
[2018-02-15 15:33] VITALS: BP 125/60
[2018-02-15 18:32] LABS: ABSOLUTE NEUTROPHILS 16.3 thou/uL (1.4-8.2); BASOPHILS 0.2 % (0.0-2.0); LYMPHOCYTES 6.5 % (24.0-44.0); MCH 31.4 pg (26.0-34.0); MCHC 33.3 g/dL (28.0-37.0); MCV 94.1 fL (80.0-100.0); MONOCYTES 6.9 % (1.0-8.0); POLYS 86.4 % (36.0-66.0); RBC 2.87 mil/uL (4.20-5.00); RDW 20.5 % (10.5-14.5); WBC 18.9 thou/uL (4.0-11.0)
[2018-02-15 18:36] LABS: PLATELET COUNT 270 thou/uL (150-400)
[2018-02-15 19:14] LABS: ANISOCYTOSIS 2+; POLYCHROMASIA SLIGHT
[2018-02-15 19:30] VITALS: BP 156/74
[2018-02-16 03:30] VITALS: BP 128/68
[2018-02-16 06:49] LABS: ABSOLUTE NEUTROPHILS 11.8 thou/uL (1.4-8.2); BASOPHILS 0.4 % (0.0-2.0); HEMATOCRIT 24.5 % (37.0-47.0); HEMOGLOBIN 8.2 gm/dL (12.0-15.0); LYMPHOCYTES 7.4 % (24.0-44.0); MCH 31.4 pg (26.0-34.0); MCHC 33.5 g/dL (28.0-37.0); MCV 93.7 fL (80.0-100.0); MONOCYTES 6.2 % (1.0-8.0); PLATELET COUNT 235 thou/uL (150-400); RBC 2.61 mil/uL (4.20-5.00); RDW 20.9 % (10.5-14.5); WBC 13.7 thou/uL (4.0-11.0)
[2018-02-16 07:11] VITALS: BP 148/73
[2018-02-16 07:52] LABS: ALBUMIN 2.8 g/dL (3.4-5.0); CALCIUM 8.8 mg/dL (8.5-10.1); CREATININE 0.9 mg/dL (0.6-1.0); POTASSIUM 3.7 mmol/L (3.5-5.1); TOTAL BILIRUBIN 0.5 mg/dL (<0.1-1.0); TOTAL PROTEIN 5.7 g/dL (6.4-8.2)
[2018-02-16 08:43] LABS: ANISOCYTOSIS 2+; PLATELET ESTIMATE NORMAL; POIKILOCYTOSIS 1+; SCHISTOCYTES FEW
[2018-02-16 11:08] VITALS: BP 151/84
[2018-02-16 15:30] VITALS: BP 154/68
[2018-02-16 18:03] LABS: ABSOLUTE NEUTROPHILS 14.6 thou/uL (1.4-8.2); BASOPHILS 0.1 % (0.0-2.0); EOSINOPHILS 0.1 % (0.0-3.0); HEMATOCRIT 27.8 % (37.0-47.0); HEMOGLOBIN 9.3 gm/dL (12.0-15.0); LYMPHOCYTES 6.3 % (24.0-44.0); MCH 31.4 pg (26.0-34.0); MCHC 33.3 g/dL (28.0-37.0); MCV 94.4 fL (80.0-100.0); MONOCYTES 6.8 % (1.0-8.0); PLATELET COUNT 306 thou/uL (150-400); POLYS 86.7 % (36.0-66.0); RBC 2.94 mil/uL (4.20-5.00); RDW 20.6 % (10.5-14.5); WBC 16.9 thou/uL (4.0-11.0)
[2018-02-16 18:54] LABS: ANISOCYTOSIS 2+; POLYCHROMASIA SLIGHT
[2018-02-16 19:35] VITALS: BP 140/68
[2018-02-17 03:52] VITALS: BP 144/63
[2018-02-17 04:37] LABS: ALBUMIN 2.7 g/dL (3.4-5.0); CALCIUM 8.7 mg/dL (8.5-10.1); POTASSIUM 4.1 mmol/L (3.5-5.1); TOTAL BILIRUBIN 0.4 mg/dL (<0.1-1.0); TOTAL PROTEIN 5.8 g/dL (6.4-8.2)
[2018-02-17 06:09] LABS: HEMOGLOBIN 8.7 gm/dL (12.0-15.0); MCH 31.9 pg (26.0-34.0); MCHC 33.6 g/dL (28.0-37.0); RBC 2.74 mil/uL (4.20-5.00); WBC 14.7 thou/uL (4.0-11.0)
[2018-02-17 08:28] VITALS: BP 133/60
[2018-02-17 11:31] VITALS: BP 111/44
[2018-02-17 16:03] VITALS: BP 150/51
[2018-02-17] MEDS ORDERED: METOPROLOL SUCC50 MG PO (17:08)
[2018-02-17] MEDS ORDERED: CARDIZEM CD 18180 M3 PO (17:08)
[2018-02-17] MEDS ORDERED: OXYCODONE HCL 55 MG PO (17:09)
[2018-02-17] MEDS ORDERED: ARTIFICIAL TEA1 EACH OPHTHALMIC (17:10)
[2018-02-17] MEDS ORDERED: FOLIC ACID 1 MG1 MG PO (17:11)
[2018-02-17] MEDS ORDERED: PREDNISONE 20 M20 M1 PO (17:11)
[2018-02-17] MEDS ORDERED: SENNA PLUS TAB1 EACH PO (17:12)
[2018-02-17] MEDS ORDERED: PEPCID20 MG PO (17:12)
== END 2018-02-17 19:30 | DRG 545 ==
LOC: ER 02:05 → EROBS 05:45 → 4W 05:45 → 3W 05:45 → 4E 05:45 → 4W 01-31 08:52 → ICU 02-01 14:06 → ENTRNSPT 02-02 15:49 → 3W 02-06 14:12 → ICU 02-10 07:56 → 3W 02-11 19:41
PROVIDERS: Emergency Medicine; Hospitalist; Internal Medicine Hematology & Oncology; Psychiatry & Neurology Neurology
DX: M31.1 Thrombotic microangiopathy (principal); I63.443 Cerebral infarction due to embolism of bilateral cerebellar arteries; I63.9 Cerebral infarction, unspecified; I10 Essential (primary) hypertension; R27.0 Ataxia, unspecified; I48.0 Paroxysmal atrial fibrillation; H91.90 Unspecified hearing loss, unspecified ear; I08.3 Combined rheumatic disorders of mitral, aortic and tricuspid valves; E78.00 Pure hypercholesterolemia, unspecified; R74.8 Abnormal levels of other serum enzymes; B37.9 Candidiasis, unspecified; D64.9 Anemia, unspecified; Z28.21 Immunization not carried out because of patient refusal; Z85.3 Personal history of malignant neoplasm of breast; Z90.11 Acquired absence of right breast and nipple; Z79.82 Long term (current) use of aspirin; Z92.21 Personal history of antineoplastic chemotherapy; Z79.899 Other long term (current) drug therapy; Z88.8 Allergy status to other drugs, medicaments and biological substances; Z91.041 Radiographic dye allergy status; Z82.49 Family history of ischemic heart disease and other diseases of the circulatory system
CPT/HCPCS: 10047; 10078; 10084; 10879

== ENCOUNTER → 2018-02-18 | Outpatient (CLI) | payer OTHER ==
[2018-02-18] VITALS (7 sets, daily range): BP systolic 105–142; BP diastolic 47–61
[~2018-02-18] MED LIST changes: +ARIMIDEX1 MG PO; +ARTIFICIAL TEA1 EACH OPHTHALMIC; +CARDIZEM CD 18180 M3 PO; +FOLIC ACID 1 MG1 MG PO; +METOPROLOL SUCC50 MG PO; +OXYCODONE HCL 55 MG PO; +PEPCID20 MG PO; +PREDNISONE 20 M20 M1 PO; +SENNA PLUS TAB1 EACH PO
== END ==
LOC: OPONC 06:21
DX: M31.1 Thrombotic microangiopathy (principal)

== ENCOUNTER → 2018-02-26 | Outpatient (CLI) | payer OTHER ==
[~2018-02-26] MED LIST changes: +ACETAMINOPHEN325 M1 PO; +CIPRO250 M1 PO; +K-DUR 20 MEQ T20 MEQ PO; +MIRALAX17 GM PO
[2018-02-26 14:01] LABS: ABSOLUTE NEUTROPHILS 2.9 thou/uL (1.4-8.2); BASOPHILS 0.4 % (0.0-2.0); EOSINOPHILS 0.6 % (0.0-3.0); HEMATOCRIT 28.5 % (37.0-47.0); HEMOGLOBIN 9.7 gm/dL (12.0-15.0); LYMPHOCYTES 14.2 % (24.0-44.0); MCH 32.7 pg (26.0-34.0); MCHC 34.1 g/dL (28.0-37.0); MCV 95.8 fL (80.0-100.0); MONOCYTES 7.3 % (1.0-8.0); PLATELET COUNT 153 thou/uL (150-400); POLYS 77.5 % (36.0-66.0); RBC 2.97 mil/uL (4.20-5.00); RDW 19.8 % (10.5-14.5); WBC 3.7 thou/uL (4.0-11.0)
[2018-02-26 14:10] VITALS: BP 136/69
[2018-02-26 14:40] VITALS: BP 132/76
[2018-02-26 14:56] VITALS: BP 128/72
--- NOTE | 2018-02-26 15:07 | NUR ---
IN FOR LAST OF 4 WEEKLY RITUXAN INFUSIONS. UPON ARRIVAL TO CLINIC PATIENT COMPLAINING OF EPIGASTRIC PAIN. DENIED NAUSEA AT THAT TIME. WITHIN 15 MINUTES PATIENT VOMITED LARGE AMOUNT OF CRAIG COLORED EMESIS. STATED FELT BETTER AFTER VOMITING. NOTIFIED DR. QUINTERO OF N/V PRIOR TO STARTING RITUXAN. RECEIVED NEW ORDER TO DO LAB AND OK TO GIVE RITUXAN. PREMEDICATED WITH TYLENOL AND BENADRYL. TITRATED RITUXAN PER PROTOCOL WITH MAX RATE OF 300ML/HR AND TOLERATED WELL WITH NO FURTHER EMESIS OR COMPLAINT. RESTED QUIETLY THROUGHOUT INFUSION. FAMILY WITH PATIENT.
[2018-02-26 15:15] VITALS: BP 145/80
[2018-02-26 15:45] VITALS: BP 142/72
[2018-02-26 16:41] LABS: ALBUMIN 2.6 g/dL (3.4-5.0); CALCIUM 8.6 mg/dL (8.5-10.1); CREATININE 0.8 mg/dL (0.6-1.0); TOTAL BILIRUBIN 0.5 mg/dL (<0.1-1.0); TOTAL PROTEIN 5.8 g/dL (6.4-8.2)
[2018-02-26 16:42] LABS: POTASSIUM 2.8 mmol/L (3.5-5.1)
== END ==
LOC: OPONC 00:22
PROVIDERS: Internal Medicine Hematology & Oncology
DX: M31.1 Thrombotic microangiopathy (principal)

== ENCOUNTER 2018-03-05 17:08 | Inpatient (IN) | payer OTHER ==
[~2018-03-05] VITALS: Ht 152.4 cm; Wt 70.8 kg
--- NOTE | ~2018-03-05 | EKG ---
[address] [address] [email or web address] [address] ELECTROCARDIOGRAM REPORT Name: OSIEL BALLESTEROS Room #: 452-P ADM IN M.R.#: [id number] Admission: 03/05/18 Attend Phys: Elyssa Chavez MD Discharge: Date of : 39 Report #: [id number] THIS REPORT FOR: //name// [facility] ED Test Date: 2018-03-05 Test Time: 18:26:59 Pat Name: OSIEL BALLESTEROS Department: Room: [facility] Gender: F Storage Consultant: HERNAN : 1935 Requested By: Boy Montanez Order Number: [id number] MD: Rehan Marcelino Measurements Intervals [place] Rate: 65 P: 32 [place]: 147 QRS: -25 QRSD: 116 T: 261 QT: 385 QTc: 401 Interpretive Statements Sinus rhythm T-wave abnormality consider inferior and lateral ischemia Compared to ECG 02/16/2018 15:33:49 Sinus rhythm is replaced PSVT Electronically Signed On 03-06-2018 7:51:57 ADMINISTRATIVE ASSISTANT COORDINATOR by Rehan Marcelino [email or web address] <ELECTRONICALLY SIGNED> By: Rehan Marcelino MD, [facility] 03/06/18 0751 182 25 Rehan Marcelino MD, [facility] /EPI
[~2018-03-05 17:08] MED LIST changes: -ACETAMINOPHEN325 M1 PO; -CIPRO250 M1 PO; -K-DUR 20 MEQ T20 MEQ PO; -MIRALAX17 GM PO
[2018-03-05 17:12] VITALS: BP 115/64
[2018-03-05 18:00] LABS: URINE BILIRUBIN NEGATIVE (Negative); URINE BLOOD NEGATIVE (Negative); URINE CLARITY CLEAR; URINE COLOR YELLOW; URINE GLUCOSE-RANDOM* NEGATIVE (Negative); URINE KETONES TRACE (Negative); URINE NITRITE-REFLEX NEGATIVE (Negative); URINE PROTEIN (DIPSTICK) NEGATIVE (Negative); URINE UROBILINOGEN 0.2 E.U./dl (0.2-1.0)
[2018-03-05 18:01] LABS: URINE LEUKOCYTES-REFLEX 1+ (Negative)
[2018-03-05 18:12] LABS: SQUAMOUS 4-10 Moderate /LPF (0-3)
[2018-03-05 18:14] LABS: BACTERIA-REFLEX 1-9 Few /HPF (None Seen); CASTS None Seen /LPF (None Seen); CRYSTALS None Seen /LPF (None Seen); MUCUS 0-3 Light strn/LPF (None Seen); TRANSITIONAL EPITHEL CELL 0-3 Few /LPF (None Seen); URINE RBC 0-2 Rare /HPF (0-2); URINE WBC-REFLEX 6-15 Few /HPF (0-5)
[2018-03-05 19:16] LABS: BASOPHILS 0.3 % (0.0-2.0); EOSINOPHILS 1.7 % (0.0-3.0); HEMATOCRIT 30.4 % (37.0-47.0); HEMOGLOBIN 10.5 gm/dL (12.0-15.0); LYMPHOCYTES 17.4 % (24.0-44.0); MCH 32.8 pg (26.0-34.0); MCHC 34.5 g/dL (28.0-37.0); MCV 94.9 fL (80.0-100.0); MONOCYTES 8.3 % (1.0-8.0); PLATELET COUNT 167 thou/uL (150-400); POLYS 72.3 % (36.0-66.0); RDW 17.7 % (10.5-14.5); WBC 5.5 thou/uL (4.0-11.0)
[2018-03-05 19:25] LABS: CALCIUM 8.9 mg/dL (8.5-10.1); POTASSIUM 3.4 mmol/L (3.5-5.1)
[2018-03-05 19:33] LABS: TROPONIN-I 0.1 ng/mL (<0.06)
[2018-03-05 20:15] VITALS: BP 145/62
[2018-03-05 20:35] VITALS: BP 145/62
[2018-03-05 21:02] VITALS: BP 118/53
[2018-03-06 04:50] VITALS: BP 123/61
[2018-03-06 04:51] LABS: HEMATOCRIT 27.4 % (37.0-47.0); HEMOGLOBIN 9.4 gm/dL (12.0-15.0); MCH 32.7 pg (26.0-34.0); MCHC 34.1 g/dL (28.0-37.0); MCV 95.7 fL (80.0-100.0); RBC 2.86 mil/uL (4.20-5.00); RDW 17.3 % (10.5-14.5); WBC 4.6 thou/uL (4.0-11.0)
[2018-03-06 05:08] LABS: CALCIUM 8.3 mg/dL (8.5-10.1); CREATININE 0.8 mg/dL (0.6-1.0); POTASSIUM 3.2 mmol/L (3.5-5.1)
[2018-03-06 05:38] LABS: TSH 0.754 uIU/mL (0.358-3.740)
[2018-03-06 08:05] VITALS: BP 122/63
[2018-03-06 14:25] VITALS: BP 110/59
[2018-03-06 19:15] VITALS: BP 99/39
[2018-03-07 04:22] VITALS: BP 102/58
[2018-03-07 05:44] LABS: HEMATOCRIT 26.8 % (37.0-47.0); HEMOGLOBIN 8.9 gm/dL (12.0-15.0); MCH 31.6 pg (26.0-34.0); MCHC 33.1 g/dL (28.0-37.0); MCV 95.3 fL (80.0-100.0); RBC 2.82 mil/uL (4.20-5.00); RDW 17.3 % (10.5-14.5); WBC 5.5 thou/uL (4.0-11.0)
[2018-03-07 05:57] LABS: CREATININE 0.8 mg/dL (0.6-1.0); POTASSIUM 3.4 mmol/L (3.5-5.1)
[2018-03-07] MEDS ORDERED: MIRALAX17 GM PO (13:52)
[2018-03-07] MEDS ORDERED: CIPRO250 M1 PO (13:52)
[2018-03-07] MEDS ORDERED: K-DUR 20 MEQ T20 MEQ PO (13:52)
[2018-03-07] MEDS ORDERED: ACETAMINOPHEN325 M1 PO (13:52)
[2018-03-07 14:10] VITALS: BP 136/62
[2018-03-07 15:01] VITALS: BP 136/62
== END 2018-03-07 15:08 | disposition home health service (06) | DRG 91 ==
LOC: ER 17:08 → EROBS 19:59 → 4W 19:59
PROVIDERS: Internal Medicine; Nurse Practitioner Family; Physician Assistant
DX: G92 Toxic encephalopathy (principal); E43 Unspecified severe protein-calorie malnutrition; M31.1 Thrombotic microangiopathy; N39.0 Urinary tract infection, site not specified; I10 Essential (primary) hypertension; E78.00 Pure hypercholesterolemia, unspecified; I48.0 Paroxysmal atrial fibrillation; F03.90 Unspecified dementia, unspecified severity, without behavioral disturbance, psychotic disturbance, mood disturbance, and anxiety; W01.0XXA Fall on same level from slipping, tripping and stumbling without subsequent striking against object, initial encounter; Y93.89 Activity, other specified; Y92.89 Other specified places as the place of occurrence of the external cause; Y99.8 Other external cause status; Z85.3 Personal history of malignant neoplasm of breast; Z86.73 Personal history of transient ischemic attack (TIA), and cerebral infarction without residual deficits; Z90.11 Acquired absence of right breast and nipple; Z79.899 Other long term (current) drug therapy; Z88.8 Allergy status to other drugs, medicaments and biological substances; Z91.041 Radiographic dye allergy status; Z82.49 Family history of ischemic heart disease and other diseases of the circulatory system
CPT/HCPCS: 10040